=== PATIENT | female | born 2000 | race African-American/Black ===

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

== ENCOUNTER 2019-10-13 09:45 | Emergency (ER) | payer MEDICAID ==
[~2019-10-13] VITALS: Ht 160 cm; Wt 46.0 kg
[2019-10-13] MEDS ORDERED: IBUPROFEN 600MG TABLET PO ONE (10:15)
[2019-10-13 10:38] LABS: CLARITY URINE TURBID (CLEAR); COLOR URINE YELLOW (YELLOW); KETONES URINE NEGATIVE (NEGATIVE); LEUKOCYTE ESTERASE URINE 3+ (NEGATIVE); NITRITE URINE NEGATIVE (NEGATIVE); OCCULT BLOOD URINE 3+ (NEGATIVE); PH URINE 6.5 (4.5-8.0); PROTEIN URINE 2+ (NEGATIVE); SPECIFIC GRAVITY URINE 1.014 (1.005-1.030); UROBILINOGEN URINE 0.2 E.U./dL (0.2-1.0)
[2019-10-13] MEDS ORDERED: CEPHALEXIN 250MG CAPSULE PO ONE (11:15)
[2019-10-13 11:52] VITALS: BP 121/75
== END 2019-10-13 11:53 | disposition home or self-care (01) ==
LOC: ER 09:50
DX: N39.0 Urinary tract infection, site not specified (principal); J45.909 Unspecified asthma, uncomplicated
CPT/HCPCS: 81003; 81025; 87077; 87186; 99283